=== PATIENT | female | born 1985 | race Caucasian/White ===

== ENCOUNTER 2021-10-18 02:41 | Emergency (ER) | payer OTHER, SELFPAY ==
--- NOTE | ~2021-10-18 | CT_ITS ---
EXAMINATION: NONCONTRAST HEAD CT NONCONTRAST CERVICAL SPINE CT INDICATION INFORMATION: Fall, pain COMPARISON: None TECHNIQUE: Separate noncontrast CT examinations of the head and cervical spine were performed. Coronal head CT images and coronal and sagittal cervical spine images were created at the technologist workstation. DLP: 1262 mGy-cm DOSE LOWERING TECHNIQUES: This CT examination was performed using dose optimization techniques as appropriate, variously including the following: - Automated exposure control - Adjustment of mA and/or kV according to patient size (this includes techniques or standardized protocols for targeted exams were dose is matched to indication/reason for exam; i.e. extremities or head) - Use of iterative reconstruction technique FINDINGS: Head: There is no evidence of acute intracranial hemorrhage or territorial infarction. No abnormal mass-effect or midline shift is seen. Schwab to white matter differentiation is well preserved. No extra-axial fluid collections are identified. The ventricles are normal in size. There is no abnormal attenuation within the brain parenchyma. The osseous structures and soft tissues are normal. The mastoid air cells and visualized portions of the paranasal sinuses are well-aerated. Cervical spine: There is anatomic alignment of the vertebral bodies and posterior elements. There is reversal of the normal cervical lordosis. Vertebral body heights are maintained. There is slight disc space narrowing of the lower cervical spine with associated endplate osteophytes. No evidence of acute fracture. No prevertebral soft tissue swelling. Visualized portions of the lung apices are unremarkable. The thyroid gland is unremarkable. CT/CT cervical spine wo con IMPRESSION: 1. Head: No acute intracranial findings. 2. Cervical spine: Reversal of the normal lordosis which could be due to positioning or muscle spasm. Otherwise, no acute findings identified.
[2021-10-18 02:48] VITALS: BMI 22.6
[2021-10-18] MEDS: Lidocaine 4 % Cream KIT 1 APPL TOPICAL (03:00)
[2021-10-18] MEDS: Diphth,Pertus(ACell),Tet Adult 0.5 ML SYRINGE IM (03:01)
[2021-10-18] MEDS: ondansetron HCL 4 MG/2 ML VIAL IM (03:04)
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
[2021-10-18 03:21] LABS: MANUAL DIFF FLAG NO
[2021-10-18] MEDS: Midazolam HCl/PF 2 MG/2 ML VIAL IM (03:22)
[2021-10-18 03:23] LABS: Basophils Absolute Auto 0.1 X10*3/uL (0.0-0.2); Basophils Percent Auto 0.7 % (0-2); Eosinophils Absolute Auto 0.2 X10*3/uL (0.0-0.4); Eosinophils Percent Auto 1.8 % (0-4); Hematocrit 37.4 % (37.0-47.0); Hemoglobin 12.8 g/dl (12.0-16.0); Imm Gran Abs Auto 0.05 X10*3/uL (0.00-0.03); Imm Gran Pct Auto 0.5 % (0.0-0.4); Lymphocytes Absolute Auto 3.9 X10*3/uL (1.2-4.9); Lymphocytes Percent Auto 38.2 % (20-40); Mean Corpuscular HGB Conc 34.2 g/dl (31.0-35.0); Mean Corpuscular Volume 90.6 fL (80.0-98.0); Mean Platelet Volume 9.3 fL (9.4-12.3); Monocytes Absolute Auto 0.8 X10*3/uL (0.1-1.2); Monocytes Percent Auto 7.5 % (2-11); Neutrophils Absolute Auto 5.2 x10*3/uL (2.0-8.3); Neutrophils Percent Auto 51.3 % (45-73); Platelet Count 300 X10*3/uL (160-400); Red Blood Count 4.13 X10*6/uL (4.20-5.50); Red Cell Distribution Width 12.9 % (11.0-16.0); White Blood Count 10.1 X10*3/uL (4.8-10.8)
[2021-10-18 03:40] LABS: COVID-19 Test Negative (Negative)
[2021-10-18 03:43] LABS: Alanine Aminotransferase 10 U/L (0-31); Albumin Level 4.6 g/dL (3.5-5.0); Alkaline Phosphatase 62 U/L (39-117); Anion Gap 17 (12-20); Aspartate Amino Transferase 17 U/L (5-31); Bilirubin Direct < 0.2 mg/dL (0.0-0.5); Bilirubin Total 0.3 mg/dL (0.0-1.0); Blood Urea Nitrogen 5 mg/dL (9-16); Calcium 8.6 mg/dL (8.4-10.2); Carbon Dioxide 17 mmol/L (22-29); Chloride 107 mmol/L (96-108); Creatinine Clr Calc Pharmacy 104.5; Estimated Glomerular Filt Rate > 60; Ethanol 375 mg/dL; Glucose Random 99 mg/dL (60-115); Potassium 3.9 mmol/L (3.3-5.1); Sodium 137 mmol/L (135-145); Total Protein 7.3 g/dL (6.5-8.0)
[2021-10-18 03:49] LABS: HCG Quantitative < 2 mIU/mL
[2021-10-18] MEDS: OLANZapine 10 MG VIAL 5 MG IM (03:59)
[2021-10-18 04:48] VITALS: BP 108/53; PULSE 89; RESP 17; O2SAT 100
[2021-10-18 04:50] VITALS: BP 119/80; PULSE 89; RESP 17; O2SAT 99
[2021-10-18 05:30] VITALS: BP 92/54; PULSE 87; RESP 17; O2SAT 99
[2021-10-18 06:05] VITALS: BP 120/72; PULSE 74; RESP 14; O2SAT 99
--- NOTE | 2021-10-18 08:30 | PC.NURSE ---
pt is currently asleep respirations even and unlabored
[2021-10-18 11:00] VITALS: BP 106/57; PULSE 78; RESP 18; O2SAT 96
== END 2021-10-18 12:11 | disposition home or self-care (01) ==
PROVIDERS: Emergency Medicine; Emergency Provider Emergency Medicine Emergency Medical Services
DX: F10.120 Alcohol abuse with intoxication, uncomplicated (principal); Y90.8 Blood alcohol level of 240 mg/100 ml or more; S01.01XA Laceration without foreign body of scalp, initial encounter; S00.83XA Contusion of other part of head, initial encounter; W10.1XXA Fall (on)(from) sidewalk curb, initial encounter; R45.1 Restlessness and agitation; F17.200 Nicotine dependence, unspecified, uncomplicated; Z20.822 Contact with and (suspected) exposure to COVID-19; Y93.01 Activity, walking, marching and hiking; Y92.414 Local residential or business street as the place of occurrence of the external cause; Y99.9 Unspecified external cause status
CPT/HCPCS: 12002; 70450; 72125; 80048; 80076; 82077; 84702; 85025; 87635; 90471; 90715; 96372; 99284; 99285; J2250; J2405

== ENCOUNTER 2022-01-09 04:49 | Emergency (ER) | payer OTHER, SELFPAY ==
[2022-01-09 04:59] VITALS: BMI 24.0
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
[2022-01-09 05:18] VITALS: BP 101/65; PULSE 95; RESP 16; TEMP 36.7; O2SAT 97
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
[2022-01-09] MEDS: LORazepam 1 MG TABLET PO (05:51)
[2022-01-09 06:00] VITALS: BP 93/61; PULSE 90; RESP 17; TEMP 36.6; O2SAT 99
--- OUTSIDE RECORDS SUMMARY | 2022-01-09 06:03 | XMS_ITS | Continuity of Care Document ---
:1985 Author Organization [facility] Address [address] [place] [address]- Care Team Providers Name Role Phone Not on Staff, PCP Primary Care Physician Unavailable [facility] [place]): 02/22/21 - 02/22/21 [facility] [address] [place] [id number] Encounter Diagnosis Rib pain (Final) - 02/22/21 Discharge Disposition: A-D/C Home Attending Physician: Leidy Kohler DO Admitting Physician: Leidy Kohler DO Referring Physician: Not on Staff, Referring MD Allergies, Adverse Reactions, Alerts Substance Reaction Severity Status amoxicillin Active Lactose Active Immunizations Given and Recorded Vaccine Date Status Refusal Reason tetanus/diphtheria/pertussis, acel(Tdap) 02/22/21 Given Medications docusate sodium 100 mg oral capsule 1 capsule = 100 mg, By Mouth, 2 times a day, hold for diarrhea, # 50 capsule, 0 Refills, Maintenance, Capsule Start Date: 03/20/11 Status: Ordereddocusate sodium 100 mg oral capsule 1 capsule = 100 mg, By Mouth, 2 times a day, # 14 capsule, 0 Refills, Maintenance, Capsule Start Date: 03/19/11 Stop Date: 03/26/11 Status: Orderedibuprofen 600 mg oral tablet 1 tablet = 600 mg, By Mouth, 3 times a day, PRN Pain , Moderate, # 30 tablet, 0 Refills, Maintenance, Tablet Start Date: 03/20/11 Status: Orderedlamotrigine 150 mg oral tablet = 150 mg, By Mouth, 2 times a day, # 28 tablet, 0 Refills, Maintenance, 05/10/16 10:49:47, Tablet Start Date: 05/10/16 Stop Date: 05/24/16 Status: Orderedmorphine 15 mg oral tablet, immediate release 1 tablet = 15 mg, By Mouth, Every 4 hours, PRN Pain , Mild, # 50 tablet, 0 Refills, Maintenance, Tablet Start Date: 03/20/11 Status: OrderedtraZODone 300 mg oral tablet 0.5 tablet = 150 mg, By Mouth, Daily at bedtime, ? TOTAL OF 300MG DOSE, # 15 tablet, 0 Refills, Maintenance, 03/24/16 2:30:00, Tablet Start Date: 03/24/16 Status: OrderedZithromax Z-Jabier See Instructions, 6 tablet, 0, 0, 12/01/07 10:21:04, as directed on package labeling, Print HAVEN Number, [facility] [address] [place] [id number], Constant Indicator Start Date: 12/01/07 Status: Ordered Results Radiology Reports Exam Date Time Procedure Performing Provider Status 02/22/21 2:35 AM Chest Portable Sri Wild; Auth (Verif ied) Notes:(Chest Portable) Reason For Exam: Pain;Other:RESULT: Chest Portable Chest Portable Reason: Pain; Clinical Question(s): Fracture, pneumothorax, pulmonary contusion COMPARISON: None. FINDINGS: LINES AND TUBES: None. LUNGS AND PLEURA: Clear lungs. Normal pulmonary vascularity. No pleural effusion. No pneumothorax. HEART, MEDIASTINUM AND CARMELA: Heart is normal in size. Normal upper mediastinal and hilar contour. BONES AND SOFT TISSUES: No acute abnormality. IMPRESSION: No acute abnormality. WSN: [id number] Ordering Physician: Leidy Kohler Dictated By: Dmitry Allen MD Dictated Date/Time: 02/22/21 7:25 am Reviewed By: Dmitry Allen MD Signed By: Dmitry Allen MD Signed Date/Time: 02/22/21 7:25 am Transcribed By: KARLOS Transcribed Date/Time: 02/22/21 7:23 am Vital Signs Most recent to oldest [Reference Range]: 1 2 Oxygen Saturation [94-100 %] 98 % 100 % (02/22/21 4:31 AM) (02/22/21 2:27 AM) Pulse Rate [55-90 bpm] 88 bpm 96 bpm (02/22/21 4:31 AM) *H* (02/22/21 2:27 AM) Blood Pressure [90-138/55-84 mm Hg] 125/78 mm Hg 134/ 99 mm Hg (02/22/21 4:31 AM) (02/22/21 2:27 AM) Respiratory Rate [16-30 br/min] 18 br/min 22 br/mi n (02/22/21 4:31 AM) (02/22/21 2:27 AM) Temperature [96.8-100.4 DegF] 98.4 DegF (02/22/21 2:27 AM) Mode of Delivery (Oxygen) Room air Room air (02/22/21 4:31 AM) (02/22/21 2:27 AM) Blood pressure sites Arm, left Arm, left (02/22/21 4:31 AM) (02/22/21 2:27 AM) Temperature Route Oral (02/22/21 2:27 AM)
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
== END 2022-01-09 06:39 | disposition home or self-care (01) ==
PROVIDERS: Emergency Provider Internal Medicine
DX: F41.9 Anxiety disorder, unspecified (principal); F31.9 Bipolar disorder, unspecified; F17.200 Nicotine dependence, unspecified, uncomplicated; F10.20 Alcohol dependence, uncomplicated; Y90.9 Presence of alcohol in blood, level not specified; Z79.899 Other long term (current) drug therapy
CPT/HCPCS: 99284; 99285